=== PATIENT | male | born 1985 ===

== ENCOUNTER 2017-03-19 19:07 | Observation (INO) | payer OTHER ==
[~2017-03-19] VITALS: Ht 182.9 cm; Wt 121.4 kg
[2017-03-19] VITALS (14 sets, daily range): BP systolic 116–156; BP diastolic 55–93; PULSE 70–94; RESP 16–24; TEMP 98.8; O2SAT 93–99
[2017-03-19] MEDS ORDERED: SODIUM CHLORIDE 0.9% FLUSH 10 ML FLUSH IVF PRN (19:15)
[2017-03-19] MEDS ORDERED: HEPARIN SODIUM - IV 10,000 UNITS/10 ML VIAL IV ONE (19:30)
[2017-03-19] MEDS ORDERED: HEPARIN-D5W INJ 250 ML IV SCH (19:30)
[2017-03-19] MEDS ORDERED: NITROGLYCERIN-DEXTROSE INJ 250 ML IV ONE (19:30)
--- NOTE | 2017-03-19 19:38 | PD ---
HPI Chief Complaint: Chest Pain Time Seen by Provider: 19:15 Travel History International Travel<30 days: No Contact w/Intl Traveler<30days: No Traveled to known affect area: No History of Present Illness HPI 31-year-old obese male with history of HTN, HLD, DM here with complaint of chest pain. Approximately 30 minutes prior to arrival patient had sudden onset of severe 10 out of 10 substernal chest pain that radiated slightly around to the right back. Associated shortness of breath, diaphoresis , nausea but no vomiting. 911 was called and when fire department arrived patient was cool pale and profusely diaphoretic. Twelve-lead EKG shows ST elevation in V3 only, T-wave inversion in inferior leads. Patient was given aspirin, nitroglycerin 3, morphine 6 mg prior to arrival. This is taken his pain from 05/25 to 03/25. Patient denies any known history of cardiac disease, has never previously had provocative testing. PFSH Past Medical History High Cholesterol: Yes Diabetes: Yes Patient Takes Glucophage: Yes Hypertension: Yes Medical other: Yes (SLEEP APNEA) Influenza Vaccination: Yes Past Surgical History Neurologic Surgery: Yes (DISC SURGERY IN NECK) Social History Alcohol Use: No Tobacco Use: No Substance Use: No Allergies-Medications (Allergen,Severity, Reaction): Coded Allergies: No Known Allergies (Unverified , 03/19/17) Reported Meds & Prescriptions Reported Meds & Active Scripts Active Reported Atorvastatin (Atorvastatin Calcium) 10 Mg Tab 10 Mg PO DAILY Lisinopril 2.5 Mg Tab Unknown Dose PO DAILY Metformin (Metformin HCl) 1,000 Mg Tab 1,000 Mg PO BIDPC With meals Lantus Inj (Insulin Glargine) 1,000 Unit/10 Ml Vial 40 Units SQ HS Lantus Inj (Insulin Glargine) 1,000 Unit/10 Ml Vial 30 Units SQ AC LUNCH Lantus Inj (Insulin Glargine) 1,000 Unit/10 Ml Vial 20 Units SQ DAILY NEB Novolin R Inj (Insulin Human Regular) 1,000 Unit/10 Ml Vial 100 Units SQ BID Review of Systems Except as stated in HPI: all other systems reviewed are Neg Physical Exam Narrative GENERAL: Obese male in mild distress SKIN: Focused skin assessment warm/dry. HEAD: Normocephalic. EYES: No scleral icterus. No injection or drainage. ENT: Mucous membranes pink and moist. NECK: Supple CARDIOVASCULAR: Regular rate and rhythm. No murmur appreciated. RESPIRATORY: No accessory muscle use. Clear to auscultation. Breath sounds equal bilaterally. GASTROINTESTINAL: Abdomen soft, non-tender, nondistended. Obese MUSCULOSKELETAL: No obvious deformities. No edema. NEUROLOGICAL: Awake and alert. Motor grossly within normal limits. Normal speech. PSYCHIATRIC: Appropriate mood and affect; insight and judgment normal. Data Data Last Documented VS Vital Signs Date Time Temp Pulse Resp B/P Pulse Ox O2 Delivery O2 Flow Rate FiO2 03/19/17 20:26 88 18 143/71 Room Air 03/19/17 20:15 95 03/19/17:17 98.8 Orders Electrocardiogram (03/19/17 19:15) Ckmb (Isoenzyme) Profile (03/19/17 19:15) Complete Blood Count With Diff (03/19/17 19:15) Magnesium (Mg) (03/19/17 19:15) Prothrombin Time / Inr (Pt) (03/19/17 19:15) Act Partial Throm Time (Ptt) (03/19/17 19:15) Troponin I (03/19/17 19:15) Ecg Monitoring (03/19/17 19:15) Bilateral Bp Monitoring (03/19/17 19:15) Iv Access Insert/Monitor (03/19/17 19:15) Oximetry (03/19/17 19:15) Oxygen Administration (03/19/17 19:15) Sodium Chloride 0.9% Flush (Ns Flush) (03/19/17 19:15) Comprehensive Metabolic Panel (03/19/17 19:15) Lipase (03/19/17 19:15) Nitroglycerin-Dextrose Inj (Nitroglyceri (03/19/17 19:30) Heparin Infusion PEDRO.Q1H (03/19/17 19:26) Heparin Inj (Heparin Inj) (03/19/17 19:30) Heparin Inj (Heparin Inj) (03/20/17 01:30) Heparin Inj (Heparin Inj) (03/20/17 01:30) Heparin-D5w Inj (Heparin-D5w Inj) (03/19/17 19:30) Cbc No Diff, Includes Plts (03/22/17 06:00) Act Partial Throm Time (Ptt) (03/20/17 02:26) Occult Blood (Hemoccult) Stool (03/19/17 19:26) Chest, Single Ap (03/19/17 ) CKMB (03/19/17 19:20) CKMB% (03/19/17 19:20) Insulin Human Regular Inj (Novolin R Inj (03/19/17 20:45) Admit Order (Ed Use Only) (03/19/17 20:38) Consult Cardiology (03/19/17 ) Labs Laboratory Tests Test 03/19/17 19:20 White Blood Count 6.9 TH/MM3 Red Blood Count 5.60 MIL/MM3 Hemoglobin 14.6 GM/DL Hematocrit 44.0 % Mean Corpuscular Volume 78.6 FL Mean Corpuscular Hemoglobin 26.0 PG Mean Corpuscular Hemoglobin 33.1 % Concent Red Cell Distribution Width 13.0 % Platelet Count 206 TH/MM3 Mean Platelet Volume 8.7 FL Neutrophils (%) (Auto) 47.2 % Lymphocytes (%) (Auto) 43.0 % Monocytes (%) (Auto) 6.8 % Eosinophils (%) (Auto) 1.9 % Basophils (%) (Auto) 1.1 % Neutrophils # (Auto) 3.3 TH/MM3 Lymphocytes # (Auto) 3.0 TH/MM3 Monocytes # (Auto) 0.5 TH/MM3 Eosinophils # (Auto) 0.1 TH/MM3 Basophils # (Auto) 0.1 TH/MM3 CBC Comment AUTO DIFF Differential Total Cells 100 Counted Neutrophils % (Manual) 53 % Lymphocytes % 36 % Monocytes % 9 % Eosinophils % 1 % Basophils % 1 % Neutrophils # (Manual) 3.7 TH/MM3 Differential Comment FINAL DIFF MANUAL Platelet Estimate NORMAL Platelet Morphology Comment NORMAL Red Cell Morphology Comment NORMAL Prothrombin Time 10.8 SEC Prothromb Time International 1.0 RATIO Ratio Activated Partial 24.5 SEC Thromboplast Time Sodium Level 131 MEQ/L Potassium Level 3.8 MEQ/L Chloride Level 97 MEQ/L Carbon Dioxide Level 20.5 MEQ/L Anion Gap 14 MEQ/L Blood Urea Nitrogen 9 MG/DL Creatinine 1.08 MG/DL Estimat Glomerular Filtration 79 ML/MIN Rate Random Glucose 414 MG/DL Calcium Level 9.5 MG/DL Magnesium Level 1.9 MG/DL Total Bilirubin 0.4 MG/DL Aspartate Amino Transf 49 U/L (AST/SGOT) Alanine Aminotransferase 86 U/L (ALT/SGPT) Alkaline Phosphatase 94 U/L Total Creatine Kinase 295 U/L Troponin I LESS THAN 0.02 NG/ML Total Protein 8.5 GM/DL Albumin 4.0 GM/DL Lipase 76 U/L MDM Medical Decision Making Medical Screen Exam Complete: Yes Emergency Medical Condition: Yes Medical Record Reviewed: Yes Differential Diagnosis 31-year-old obese male with history of HTN, HLD, DM here with complaint of severe sudden onset chest pain, shortness of breath with lightheadedness and profuse diaphoresis. Differential includes ACS, atypical chest pain, PE, dissection, GERD, gastritis, pancreatitis or other hepatobiliary etiology. Narrative Course Patient met by myself upon emergency department arrival, placed on monitor, IV established and blood obtained. Twelve-lead EKG shows sinus rhythm with T-wave inversions in inferior leads 3, aVF. There is no evidence of ST elevation. A right sided EKG was obtained. There is no evidence of ST elevation in V4R. The patient still complaining of 8/10 pain. Was placed on heparin drip, nitroglycerin drip. A twelve-lead EKG was repeated approximately 6 minutes after the first without any interval changing. The T-wave inversions in the inferior leads persist. Posterior EKG was obtained without any ST elevation or ST depression. Laboratory workup notable for hyperglycemia, given 10 units of insulin. Initial troponin negative. On 70-80 g nitroglycerin drip patient is chest pain-free. Cardiology was consulted, will keep him nothing by mouth after midnight for potential cardiac catheter in the morning. Patient will be admitted to medicine. Critical Care Narrative Aggregate critical care time was 50 minutes. Time to perform other separately billable procedures was not included in the critical care time. My time did not include minutes spent treating any other patients simultaneously or on activities that did not directly contribute to the patient's treatment. The services I provided to this patient were to treat and/or prevent clinically significant deterioration that could result in: Cardiopulmonary decompensation, , disability I provided critical care services requiring my management, as noted below: Chart data review, documentation time, medication orders and management, vital sign assessments/reviewing monitor data, ordering and reviewing lab tests, ordering and interpreting/reviewing x-rays and diagnostic studies, care of the patient and discussion of the patient with the admitting physicians. Diagnosis Primary Impression: Non-ST elevation TN (NSTEMI) Additional Impressions: Chest pain Qualified Code: R07.2 - Precordial pain Hyperglycemia Diabetes Admitting Information Admitting Physician Requests: Admit Katie Hernandez MD Mar 19, 2017 19:38
[2017-03-19 19:40] LABS: AUTOMATED NEUTROPHIL # 3.3 TH/MM3 (1.8-7.7); BASOPHIL # 0.1 TH/MM3 (0-0.2); BASOPHIL % 1.1 % (0.0-2.0); EOSINOPHIL # 0.1 TH/MM3 (0-0.4); EOSINOPHIL % 1.9 % (0.0-4.0); MEAN CELL VOLUME 78.6 FL (80.0-100.0); MEAN CORPUSCULAR HGB CONC 33.1 % (32.0-36.0); MONO % 6.8 % (0.0-8.0); NEUT % 47.2 % (16.0-70.0); PLATELET COUNT 206 TH/MM3 (150-450); WHITE BLOOD COUNT 6.9 TH/MM3 (4.0-11.0)
[2017-03-19 19:44] LABS: HEMO FLAGS AUTO DIFF
[2017-03-19] MEDS ORDERED: NOVORP2 SQ (19:48)
[2017-03-19] MEDS ORDERED: LANTUS2P SQ ×3 (19:48)
[2017-03-19] MEDS ORDERED: METF1000 PO (19:48)
[2017-03-19] MEDS ORDERED: LISI2.5T3 PO (19:48)
[2017-03-19] MEDS ORDERED: ATOR10TA15 PO (19:48)
[2017-03-19 19:49] LABS: APTT (PATIENT) 24.5 SEC (24.3-30.1); PROTHROMBIN TIME - PATIENT 10.8 SEC (9.8-11.6)
[2017-03-19 20:23] LABS: ALKALINE PHOSPHATASE 94 U/L (45-117); ALT (GPT) 86 U/L (12-78); ANION GAP 14 MEQ/L (5-15); AST (GOT) 49 U/L (15-37); BICARBONATE 20.5 MEQ/L (21.0-32.0); BLOOD UREA NITROGEN 9 MG/DL (7-18); CHLORIDE 97 MEQ/L (98-107); CREATINE KINASE 295 U/L (39-308); GLOMERULAR FILTRATION RATE 79 ML/MIN (>89); MAGNESIUM 1.9 MG/DL (1.5-2.5); SODIUM (NA) 131 MEQ/L (136-145); TOTAL BILIRUBIN ADULT 0.4 MG/DL (0.2-1.0)
[2017-03-19 20:32] LABS: POTASSIUM 3.8 MEQ/L (3.5-5.1)
[2017-03-19 20:37] LABS: BASOPHILS 1 % (0-2); EOSINOPHILS 1 % (0-4); NEUTROPHIL # MANUAL DIFF 3.7 TH/MM3 (1.8-7.7); POLYS (SEG NEUTROPHILS) 53 % (16-70); WBC DIFF SAMPLE 100
[2017-03-19 20:38] LABS: PLATELET ESTIMATE SMEAR NORMAL (NORMAL); PLATELET MORPHOLOGY NORMAL (NORMAL); SCAN/DIFF FINAL DIFF MANUAL
--- NOTE | 2017-03-19 20:38 | RADRPT ---
EXAM DATE/TIME: 03/19/2017 20:06 [facility] COMPARISON: No previous studies available for comparison. INDICATIONS : Chest pain. MEDICAL HISTORY : None. SURGICAL HISTORY : None. ENCOUNTER: Initial ACUITY: 1 day PAIN SCORE: 5/10 LOCATION: Bilateral chest FINDINGS: A single view of the chest demonstrates the lungs to be symmetrically aerated without evidence of mas s, infiltrate or effusion. The cardiomediastinal contours are unremarkable. Osseous structures are intact. CONCLUSION: The lungs are clear. Abhishek Hanna MD on March 19, 2017 at 20:36 Board Certified Radiologist. This report was verified electronically.
[2017-03-19] MEDS ORDERED: ACETAMINOPHEN 500 MG CPLT PO ONE (20:45)
[2017-03-19] MEDS ORDERED: INSULIN HUMAN REGULAR 1,000 UNITS/10 ML VIAL SQ ONE (20:45)
[2017-03-19 20:49] LABS: CKMB 0.6 NG/ML (0.5-3.6)
--- NOTE | 2017-03-19 20:53 | HHI.HP ---
[facility] Service [facility] Primary Care Physician [facility] Admission Diagnosis NSTEMI Diagnoses: (1) ACS (acute coronary syndrome) Diagnosis: Principal (2) Migraine Diagnosis: Principal (3) HTN (hypertension) Diagnosis: Principal (4) DM (diabetes mellitus) Diagnosis: Principal (5) Sleep apnea Diagnosis: Principal Travel History International Travel<30 Days: No Contact w/Intl Traveler <30 Da: No Traveled to Known Affected Are: No History of Present Illness This is a 31-year-old male with a PMH of HTN, Migraine, Sleep Apnea and DM who presents the ear with complaints of chest pain starting approximately 30min prior to arrival. Reports pain started acutely w/ radiation to RUQ and back. Per , pt had c/o Migraine and took Sumatriptan 50mg x1 last evening. Today , w/ complaints of acute substernal chest pain. No fever, chills, cough or SOB. Reports h/o similar symptoms approx 1yr ago, seen at [facility] and underwent Stress Test which was reportedly negative. On arrival, BP 156/93, HR 89, O2 sat 98% on RA, Afebrile. CBC essentially unremarkable. GFR 79. BS 414. Troponin negative. INR normal. CXR with no acute findings. EKG with T- wave inversions, no previous EKG for comparison. While in ER, pt w/ ongoing complaints of pain, s/p Heparin/Nitro gtt. Dr. Amor consulted by ER physician, will see in am for possible cath. Review of Systems Except as stated in HPI: all other systems reviewed are Neg ROS: 14 point review of systems otherwise negative. Past Family Social History Past Medical History PMH: HTN, Migraine, Sleep Apnea and DM Past Surgical History PAST SURGICAL HISTORY: Neck Surgery Allergies: Coded Allergies: No Known Allergies (Unverified , 03/19/17) Family History PAST FAMILY HISTORY: Reviewed. No h/o DM or CAD Social History PAST SOCIAL HISTORY: Negative for alcohol, tobacco or drugs. Physical Exam Vital Signs Vital Signs Date Time Temp Pulse Resp B/P Pulse Ox O2 Delivery O2 Flow Rate FiO2 03/19/17 20:40 89 18 156/93 98 Room Air 03/19/17 20:26 88 18 143/71 Room Air 03/19/17 20:15 90 18 148/72 95 Room Air 03/19/17 20:10 82 18 130/68 96 Room Air 03/19/17 20:04 78 20 132/68 95 Room Air 03/19/17 20:00 76 22 131/74 94 Room Air 03/19/17 19:55 71 20 135/70 93 Room Air 03/19/17 19:50 81 20 133/71 97 Room Air 03/19/17 19:45 77 22 130/73 97 Room Air 03/19/17 19:27 124/73 03/19/17 19:17 98.8 80 24 133/85 99 Physical Exam PE: GENERAL: Very pleasant young black male in no acute distress. and family at bedside. HEENT: PERRLA, EOMI. No scleral icterus or conjunctival pallor. No lid lag or facial droop. CARDIOVASCULAR: Regular rate and rhythm. No obvious murmurs to auscultation. No chest tenderness to palpation. RESPIRATORY: No obvious rhonchi or wheezing. Clear to auscultation. Breath sounds equal bilaterally. GASTROINTESTINAL: Abdomen soft, non-tender, nondistended. BS normal. MUSCULOSKELETAL: Extremities without clubbing, cyanosis, or edema. No obvious deformities. NEUROLOGICAL: Awake, alert and oriented x4. No focal neurologic deficits. Moving both upper and lower extremities spontaneously. Laboratory Laboratory Tests Test 03/19/17 19:20 White Blood Count 6.9 Red Blood Count 5.60 Hemoglobin 14.6 Hematocrit 44.0 Mean Corpuscular Volume 78.6 Mean Corpuscular Hemoglobin 26.0 Mean Corpuscular Hemoglobin 33.1 Concent Red Cell Distribution Width 13.0 Platelet Count 206 Mean Platelet Volume 8.7 Neutrophils (%) (Auto) 47.2 Lymphocytes (%) (Auto) 43.0 Monocytes (%) (Auto) 6.8 Eosinophils (%) (Auto) 1.9 Basophils (%) (Auto) 1.1 Neutrophils # (Auto) 3.3 Lymphocytes # (Auto) 3.0 Monocytes # (Auto) 0.5 Eosinophils # (Auto) 0.1 Basophils # (Auto) 0.1 CBC Comment AUTO DIFF Differential Total Cells 100 Counted Neutrophils % (Manual) 53 Lymphocytes % 36 Monocytes % 9 Eosinophils % 1 Basophils % 1 Neutrophils # (Manual) 3.7 Differential Comment FINAL DIFF MANUAL Platelet Estimate NORMAL Platelet Morphology Comment NORMAL Red Cell Morphology Comment NORMAL Prothrombin Time 10.8 Prothromb Time International 1.0 Ratio Activated Partial 24.5 Thromboplast Time Sodium Level 131 Potassium Level 3.8 Chloride Level 97 Carbon Dioxide Level 20.5 Anion Gap 14 Blood Urea Nitrogen 9 Creatinine 1.08 Estimat Glomerular Filtration 79 Rate Random Glucose 414 Calcium Level 9.5 Magnesium Level 1.9 Total Bilirubin 0.4 Aspartate Amino Transf 49 (AST/SGOT) Alanine Aminotransferase 86 (ALT/SGPT) Alkaline Phosphatase 94 Total Creatine Kinase 295 Creatine Kinase MB 0.6 Troponin I LESS THAN 0.02 Total Protein 8.5 Albumin 4.0 Lipase 76 Result Diagram: 03/19/17191903/19/171919 Assessment and Plan Problem List: (1) ACS (acute coronary syndrome) ICD Code: I24.9 Status: Acute (2) Migraine ICD Code: G43.909 Status: Acute (3) HTN (hypertension) ICD Code: I10 Status: Acute (4) Sleep apnea ICD Code: G47.30 Status: Acute (5) DM (diabetes mellitus) ICD Code: E11.9 Status: Acute Assessment and Plan A/P: 1. ACS: c/o acute onset substernal chest pain w/ abnormal EKG, presentation concerning for ACS. Initial trop negative. Currently on Heparin/Nitro gtt, chest pain free. Admit to [facility], telemetry, check serial cardiac enzymes, Lipid Profile, Hgb A1c, TSH, start ASA, Statin, B-krista. Dr. Amor consulted by ER physician, plan for possible cath in am. Similar symptoms approx 1yr ago, s/ p Stress Test at reportedly negative. 2. Migraine: h/o Migraine w/ Acute Headache last evening, s/p Sumatriptan, possible vasoconstriction triggering chest pain. Hold Sumatriptan. 3. DM: Sliding scale w/ Accu-Cheks. Hold Metformin for possible cardiac intervention. Check Hgb A1c. 4. HTN: BP 160's on arrival, currently 116/60, HR 70. Will monitor. Continue with beta krista as above. 5. Sleep Apnea: On CPAP at night, however noncompliant. Will resume CPAP w/ home settings. 6. DVT Prophylaxis: Heparin gtt 7. Social work for d/c planning as needed. 8. Case discussed w/ ER physician at length. Physician Certification 2 Midnight Certification Type: Admission for Inpatient Services Order for Inpatient Services The services are ordered in accordance with Medicare regulations or non- Medicare payer requirements, as applicable. In the case of services not specified as inpatient-only, they are appropriately provided as inpatient services in accordance with the 2-midnight benchmark. Estimated LOS (days): 2 days is the estimated time the patient will need to remain in the hospital, assuming treatment plan goals are met and no additional complications. Post-Hospital Plan: Not yet determined Felicia Ingram MD Mar 19, 2017 20:53
[2017-03-19] MEDS ORDERED: MORPHINE SULFATE 4 MG/ML INJ IV PRN (21:00)
[2017-03-19] MEDS ORDERED: ONDANSETRON HCL 4 MG/2 ML VIAL IVP PRN (21:00)
[2017-03-19] MEDS ORDERED: LACTULOSE SYRUP 20 GM/30 ML CUP PO PRN (21:00)
[2017-03-19] MEDS ORDERED: BISACODYL 10 MG SUPP RECTAL PRN (21:00)
[2017-03-19] MEDS ORDERED: MAGNESIUM HYDROXIDE SUSP 30 ML CUP PO PRN (21:00)
[2017-03-19] MEDS: SODIUM CHLORIDE 0.9% FLUSH 10 ML FLUSH IV FLUSH SCH (21:00)
[2017-03-19] MEDS ORDERED: SODIUM CHLORIDE 0.9% FLUSH 10 ML FLUSH IV FLUSH PRN (21:00)
[2017-03-19] MEDS ORDERED: ACETAMINOPHEN/HYDROcodone 325 MG/5 MG TAB PO PRN (21:00)
[2017-03-19] MEDS ORDERED: SENNOSIDES 8.6 MG TAB PO PRN (21:00)
[2017-03-19] MEDS ORDERED: DEXTROSE 50% IN WATER 50 ML VIAL(D50) IV PRN (21:00)
[2017-03-19] MEDS ORDERED: GLUCAGON 1 MG/ML VIAL OTHER PRN (21:00)
[2017-03-19] MEDS ORDERED: PILL SPLITTER OTHER PRN (21:30)
[2017-03-19] MEDS: SODIUM CHLOR 0.9% 1000 ML INJ 1,000 ML IV SCH (21:55)
[2017-03-19] MEDS: METOPROLOL TARTRATE 25 MG TAB PO SCH (21:55)
[2017-03-19] MEDS: DOCUSATE SODIUM 50 MG/SENNA 8.6 MG TAB PO SCH (21:55)
[2017-03-19] MEDS: INSULIN ASPART SUPPLEMENTAL SCALE SQ SCH (22:50)
[2017-03-20] VITALS (35 sets, daily range): BP systolic 118–163; BP diastolic 56–96; PULSE 52–86; RESP 18–20; TEMP 97.5–98.6; O2SAT 96–100
[2017-03-20] MEDS ORDERED: HEPARIN SODIUM - IV 10,000 UNITS/10 ML VIAL IV PRN ×2 (01:30)
[2017-03-20 01:38] LABS: APTT (PATIENT) 28.2 SEC (24.3-30.1)
[2017-03-20] MEDS ORDERED: NITROGLYCERIN-DEXTROSE INJ 250 ML IV SCH (02:00)
[2017-03-20] MEDS: INSULIN ASPART SUPPLEMENTAL SCALE SQ SCH ×4 (06:09→21:30)
[2017-03-20 07:56] LABS: BASOPHIL % 0.5 % (0.0-2.0); EOSINOPHIL # 0.2 TH/MM3 (0-0.4); EOSINOPHIL % 3.2 % (0.0-4.0); HEMATOCRIT 41.9 % (39.0-51.0); HEMO FLAGS DIFF FINAL; LYMPH % 34.2 % (9.0-44.0); LYMPHOCYTE # 2.5 TH/MM3 (1.0-4.8); MEAN CELL VOLUME 78.9 FL (80.0-100.0); MEAN CORPUSCULAR HEMOGLOBIN 26.4 PG (27.0-34.0); MEAN CORPUSCULAR HGB CONC 33.4 % (32.0-36.0); MONO % 7.6 % (0.0-8.0); NEUT % 54.5 % (16.0-70.0); PLATELET COUNT 197 TH/MM3 (150-450); RED BLOOD COUNT 5.31 MIL/MM3 (4.50-5.90); RED CELL DISTRIBUTION WIDTH 13.7 % (11.6-17.2); WHITE BLOOD COUNT 7.3 TH/MM3 (4.0-11.0)
[2017-03-20 08:30] LABS: ALKALINE PHOSPHATASE 63 U/L (45-117); ALT (GPT) 88 U/L (12-78); ANION GAP 11 MEQ/L (5-15); AST (GOT) 52 U/L (15-37); BICARBONATE 27.3 MEQ/L (21.0-32.0); BLOOD UREA NITROGEN 11 MG/DL (7-18); CHLORIDE 101 MEQ/L (98-107); GLOMERULAR FILTRATION RATE 102 ML/MIN (>89); HDL CHOLESTEROL 25.6 MG/DL (40.0-60.0); LDL CHOLESTEROL 111 MG/DL (0-99); POTASSIUM 3.6 MEQ/L (3.5-5.1); SODIUM (NA) 139 MEQ/L (136-145); TOTAL BILIRUBIN ADULT 0.4 MG/DL (0.2-1.0)
[2017-03-20] MEDS ORDERED: NOVORP2 SQ ×2 (08:36→08:40)
[2017-03-20] MEDS ORDERED: LANTUS2P SQ (08:36)
[2017-03-20] MEDS ORDERED: INSUINJ3 SQ (08:38)
[2017-03-20] MEDS: DOCUSATE SODIUM 50 MG/SENNA 8.6 MG TAB PO SCH ×2 (09:00→21:20)
[2017-03-20] MEDS: SODIUM CHLORIDE 0.9% FLUSH 10 ML FLUSH IV FLUSH SCH ×2 (09:00→21:00)
[2017-03-20] MEDS ORDERED: ATORVASTATIN 10 MG TAB PO SCH (09:00)
[2017-03-20] MEDS: SODIUM CHLOR 0.9% 1000 ML INJ 1,000 ML IV SCH ×3 (09:02→21:21)
[2017-03-20 09:19] LABS: APTT (PATIENT) 29.1 SEC (24.3-30.1)
[2017-03-20] MEDS: METOPROLOL TARTRATE 25 MG TAB PO SCH ×2 (09:19→21:20)
[2017-03-20] MEDS: ACETAMINOPHEN 325 MG TAB PO PRN (09:20)
[2017-03-20] MEDS: INSULIN DETEMIR 100 UNITS/ML VIAL SQ SCH ×2 (09:29→21:00)
[2017-03-20] MEDS ORDERED: HEPARIN-NS/PF INJ 500 ML ONE (10:57)
[2017-03-20] MEDS ORDERED: IOHEXOL 350 MG/ML 50 ML BTL (for Cath Lab) OTHER ONE (11:12)
[2017-03-20] MEDS ORDERED: VERAPAMIL HCL 5 MG/2 ML VIAL ONE (11:21)
[2017-03-20] MEDS ORDERED: MIDAZOLAM HCL 2 MG/2 ML VIAL ONE (11:31)
--- NOTE | 2017-03-20 12:22 | CATHPROC ---
[email or web address] HIS Report Study Information Study Number Admission Scheduled Start Study Start [id number] Mar 19 2017 8:40PM 03/20/2017 Mar 20 2017 11:12AM [place] [facility] Cardiac Catheterization Admit Source Facility Department Emergency department [facility] - Survey Manager Physician and Clinical Staff Initial MD Perez, Fernando Design Assistant Jaime ManningRN Additional Jack Chavez Design Assistantelaina Bonilla, Macy Recorder Sara Rene,(R) (BS) Scrub Von Feliciano RCIS(BS) Procedures Performed Procedure Location (Site) Vessel Name Coronary Angiograms LCA Left Coronary Coronary Angiograms RCA Right Coronary L Heart Cath Wire insertion Radial (right) Radial Art. Equipment Time Assembly Inspector Helper Description Size Mfg Part Number Used/Scraped TRANSDUCER, TRUWAVE [id number] 11:36 TAYLOR JURADO * Used W/STOCKCOCK *[id number] [id number] *[id number] 534-520T *[id number] [id number] *[id number] [id number] *[id number] 11:36 [employer] PACK, CCL CUSTOM * Used *[id number] 11:36 [employer] SUPPORT, ARTERIAL ADULT [id number] Used BAND, RADIAL COMPRESSION TR [id number] 12:11 [employer] MEDICAL 29CM Used LARGE 29 *[id number] 11:36 [employer] WIRE, EXCHANGE 260CM 3MMJ 260CM Used *[id number] 11:36 NAMIC MANIFOLD, 4 PORT * Used *[id number] 11:36 [employer] OMNIPAQUE, 350 MG, 150ML 150ML [id number] Used [id number] 11:36 [facility] BLANKET,WARM AIR CCL * Used *[id number] SHEATH, FR6 TRANSRADIAL RM*[id number] 11:36 [facility] FR 6 Used SLENDER 10CM *[id number] History: Current Medications Medication Dosage/Unit Route Frequency Last Date/Time Taken Beta Bran Statins (any) History: Allergies Allergy Reaction No Known Allergies History: Risk Factors Family History of Hypertension Dyslipidemia Previous ND Previous Heart Failure Premature CAD Yes Yes No No No Prior Valve Prior PCI Prior CABG Surgery No No No Cerebrovascular Peripheral Artery Chronic Lung On Dialysis Diabetes Diabetes Therapy Disease Disease Disease No No No No Yes Insulin History: Symptoms/Diagnosis Selection Items Chest pain History: Stress Tests Stress or Imaging Studies Performed No History: Other Current Smoker No Labs Hgb (g/dl) Hct (%) WBC (l/cumm) Platelets (thousands) 11.60-17.00 35.00-51.00 4.00-11.00 150.00-450.00 14.0 41.9 7.3 197 Glucose (mg/dl) BUN (mg/dl) Creatinine (mg/dl) BUN:Creatinine (1:x) 74.00-106.00 7.00-18.00 0.50-1.30 10.00-20.00 258 11 0.8 13.8 Na (meq/l) K (meq/l) 136.00-145.00 3.50-5.10 139 3.6 INR (PTT:PT) 0.90-1.10 1 Troponin I (ng/ml) CPK (u/l) CPK-MB (ng/ML) 0.02-0.05 26.00-308.00 0.50-3.60 0.02 295 0.6 Medication Medication Total Dose (Bolus/Oral) Medication Total Dosage/Unit 1% XYLOCAINE 1 mL FENTANYL 50 mcg RADIAL COCKTAIL 1 mL (Bolus) VERSED 1 mg Medications (Bolus/Oral) Medication Time Given Dosage/Unit Administered By Reason VERSED 03/20/2017 11:32:41 AM 1 mg Jaime Manning 1 mg VERSED given in lab by Jaime Manning RN in Left Antecubital via Peripheral IV. 1% XYLOCAINE 03/20/2017 11:32:59 AM 1 mL Jaime Manning 1 mL 1% XYLOCAINE given in lab by Jaime Manning RN in Right Radial via Subcutaneous. FENTANYL 03/20/2017 11:33:52 AM 25 mcg Jaime Manning 25 mcg FENTANYL given in lab by Jaime Manning RN in Left Antecubital via Peripheral IV. FENTANYL 03/20/2017 11:35:58 AM 25 mcg Jaime Manning 25 mcg FENTANYL given in lab by Jaime Manning RN in Left Antecubital via Peripheral IV. Ntg 200mcg Verapamil 2.5mg Heparin RADIAL COCKTAIL 03/20/2017 11:38:15 AM 1 mL (Bolus) Jack Amor 2000U 1 mL (Bolus) RADIAL COCKTAIL given in lab by Jack Amor in Right Radial via Radial. Using [Viviana ution Name]. Reason: Ntg 200mcg Verapamil 2.5mg Heparin 5000U. Medication (Drip) Medication Time Given Dosage/Unit Concentration/Unit Diluent (ml) Solutio n HEPARIN DRIP STOPPED 03/20/2017 11:10:18 AM 0 units/hr 0 0 units/hr HEPARIN DRIP STOPPED given in lab by Jaime Manning RN. Pump/Drip Flow = 0 ml/hr using [So lution Name]. IV Solutions 03/20/2017 11:23:07 AM 0 mL (IV) 500 NaCl .9 Patient arrived on IV Solutions in Left Antecubital via Peripheral IV. Pump/Drip Flow = 100 ml/hr usi ng NaCl .9. NITROGLYCERIN DRIP 03/20/2017 11:23:32 AM 40 mcg/min 50 mg 250 D5W Patient arrived on 40 mcg/min NITROGLYCERIN DRIP in Left Antecubital via Peripheral IV. Pump/Drip Cruz w = 12 ml/hr using D5W with a concentration of 50 mg in 250 ml. NITROGLYCERIN DRIP 03/20/2017 11:53:26 AM 20 mcg/min 50 mg 250 D5W 20 mcg/min NITROGLYCERIN DRIP given in lab by Jaime Manning RN in Left Antecubital via Peripheral IV . Pump/Drip Flow = 6 ml/hr using D5W with a concentration of 50 mg in 250 ml. NITROGLYCERN DRIP 03/20/2017 12:06:01 PM 0 units/hr 0 STOPPED 0 units/hr NITROGLYCERN DRIP STOPPED given in lab by Jaime Manning RN. Pump/Drip Flow = 0 ml/hr usin g [Solution Name]. Initial Case Assessment Cardiovascular HR Rhythm NIBP Chest Pain 65 reg 140/86 0 Edema Present Skin color Skin None Normal Warm Dry Circulatory - Right Pulses Dorsalis Pedis Femoral Radial 3 3 3 Scale (0,1,2,3,4,d) Scale (0,1,2,3,4,d) Circulatory - Lower Extremities Color Lower Right Color Lower Left Normal Normal Neurological State Oriented to time-place- Alert Moves all extremities person Respiration - General Respiration Rate SpO2 (%) (B/min) 16 100 Chronological Log Time Study Chronological Log 11:10:18 0 units/hr HEPARIN DRIP STOPPED given in lab by Jaime Manning RN. Pump/Drip Flow = 0 ml/hr using [Solution Name]. 11:12:27 Patient arrived via Bed. 11:12:28 Patient Name, D.O.B, / Armband Verified By R.N. 11:12:28 Consent signed by the physician and the patient and verified by the Survey Manager staff. 11:12:29 Pre-op and post- op instructions given; patient acknowledges understanding of instructions. 11:19:20 MD arrived. 11:20:44 Verbal Stimulation=2 Physical Stimulation=2 Airway=2 Respiration=2 TOTAL=8. (0=absent, 1=li mited, 2=present) Vitals capture started with the following parameters, Patient=Adult, Interval=5 min, Initial Pr mnhrqy=559 mmHg, 11:20:46 Deflation Rate=5 mmHg, Cuff placed on Right Arm 11:20:49 Presedation assessment performed by Survey Manager RN. 11:21:56 HR=69 bpm, ELIV=828/78 mmhg, Resp=23 B/min, Pain=0, Viji=10, Sepulveda=2 11:22:42 Allens test performed on the right radial and ulnar artery. 11:22:50 Patient has been NPO for More than 6Hrs. 11:22:58 Skin Breakdown none per pt 11:22:59 Patient Warmer Placed on the Table. 11:23:05 Joseph Prominences Protected 11:23:06 A # 18 IV was noted in the Antecubital (left). Grade = 0 11:23:07 Patient arrived on IV Solutions in Left Antecubital via Peripheral IV. Pump/Drip Flow = 100 ml/hr using NaCl .9. Patient arrived on 40 mcg/min NITROGLYCERIN DRIP in Left Antecubital via Peripheral IV. Pump/Dr ip Flow = 12 ml/hr 11:23:32 using D5W with a concentration of 50 mg in 250 ml. 11:23:38 History and physical on the chart or being dictated. Assessment: Initial Case, HR=65 BPM, Rhythm=reg, FHWP=320/86 mmhg, Chest Pain=0, Edema=None, Co jose carlos=Normal, Skin = Warm, Dry Right Pulses: Derek Ped=3, Femoral=3, Radial=3 11:23:43 Lower Right Extremities: Color=Normal Lower Left Extremities: Color=Normal Neurological: State=Alert, Ox3, HUGHES Respiration: Resp=16 B/min, CkJ6=410 % 11:23:46 A # 18 IV was noted in the Antecubital (right). Grade = 0 11:24:07 Right groin and right radial prepped with 2% chlorhexidine, and with a 3 min. waiting time. 11:26:24 HR=59 bpm, LMCD=468/86 mmhg, UiS7=941.0 %, Resp=15 B/min, Pain=0, Viji=10, Sepulveda=2 11:29:04 Reference ECG taken Time Out. Correct patient, correct procedure,correct physician, power injector loaded with cont rast with surgical team 11:31:19 present. Time Out Concurred by , individual staff in procedure 11:31:25 HR=74 bpm, HVPX=811/77 mmhg, JsE3=181.0 %, Resp=23 B/min, Pain=0, Viji=10, Sepulveda=2 11:31:37 Case Start 11:32:41 1 mg VERSED given in lab by Jaime Manning RN in Left Antecubital via Peripheral IV. 11:32:59 1 mL 1% XYLOCAINE given in lab by Jaime Manning RN in Right Radial via Subcutaneous. 11:33:52 25 mcg FENTANYL given in lab by Jaime Manning RN in Left Antecubital via Peripheral IV. 11:35:39 Access site was right Radial Artery. 11:35:58 25 mcg FENTANYL given in lab by Jaime Manning RN in Left Antecubital via Peripheral IV. 11:36:29 MYDG=930/76 mmhg, TsC8=042.0 %, Pain=0, Viji=10, Sepulveda=2 A SHEATH, FR6 TRANSRADIAL SLENDER 10CM FR 6 was advanced into the Radial (right) using the Perc utaneous 11:38:00 technique. 1 mL (Bolus) RADIAL COCKTAIL given in lab by Jack Amor in Right Radial via Radial. Jahaira dyer [Solution Name]. 11:38:15 Reason: Ntg 200mcg Verapamil 2.5mg Heparin 5000U. A JR 4.0 INFINITI CATHETER FR 5 was advanced over a wire. OMNIPAQUE, 350 MG, 150ML 150ML was us ed for 11:38:41 injections. Recorded Pressure: LV, HR=70, Condition=Condition 1 11:40:52 (Left Ventricle) LV 120/13/20 Recorded Pressure: LV, Ao, HR=76, Condition=Condition 1 11:41:10 (Left Ventricle) LV 123/13/19, (Aorta) Ao 127/87/104 11:41:28 HR=67 bpm, LDUZ=502/71 mmhg, Resp=20 B/min, Pain=0, Viji=10, Sepulvead=2 11:41:39 The RCA was injected and visualized at various angles. OMNIPAQUE, 350 MG, 150ML 150ML used . Recorded Pressure: Ao, HR=69, Condition=Condition 1 11:42:04 (Aorta) Ao 115/83/98 After removing the current catheter a JL 3.5 INFINITI CATHETER FR 5 was advanced over a WIRE, E XCHANGE 260CM 11:42:48 3MMJ 260CM. After removing the current catheter a JL 4.0 INFINITI CATHETER FR 5 was advanced over a WIRE, E XCHANGE 260CM 11:46:22 3MMJ 260CM. 11:46:27 HR=61 bpm, NXDF=164/70 mmhg, SpO2=99.0 %, Resp=18 B/min, Pain=0, Viji=10, Sepulveda=2 11:51:28 HR=62 bpm, PPBQ=298/72 mmhg, SpO2=98.0 %, Resp=8 B/min, Pain=0, Viji=10, Sepulveda=2 After removing the current catheter a JL 4.5 INFINITI CATHETER FR 5 was advanced over a WIRE, E XCHANGE 260CM 11:53:08 3MMJ 260CM. 20 mcg/min NITROGLYCERIN DRIP given in lab by Jaime Manning, RN in Left Antecubital via Periphe ral IV. Pump/Drip 11:53:26 Flow = 6 ml/hr using D5W with a concentration of 50 mg in 250 ml. 11:56:29 HR=60 bpm, RYCL=840/71 mmhg, RbT0=171.0 %, Resp=27 B/min, Pain=0, Viji=10, Sepulveda=2 12:01:24 HR=64 bpm, JKZQ=840/75 mmhg, EbX6=748.0 %, Resp=21 B/min, Pain=0, Viji=10, Sepulveda=2 12:02:26 The LCA was injected and visualized at various angles. OMNIPAQUE, 350 MG, 150ML 150ML use d. 0 units/hr NITROGLYCERN DRIP STOPPED given in lab by Jaime Manning RN. Pump/Drip Flow = 0 ml/ hr using [Solution 12:06:01 Name]. 12:06:29 HR=64 bpm, ZDCU=039/70 mmhg, AqA9=832.0 %, Resp=22 B/min, Pain=0, Viji=10, Sepulveda=2 12:06:57 A WIRE, EXCHANGE 260CM 3MMJ 260CM was inserted via Radial (right). 12:07:12 Catheter was removed 12:07:13 Wire removed Radial Compression Device Used. 13 mLs of air placed in BAND, RADIAL COMPRESSION TR LARGE 29 2 9CM. Affected 12:10:29 hand 97 % O2 saturation. 12:11:07 Case End 12:11:30 HR=64 bpm, OPAR=019/72 mmhg, InC9=661.0 %, Resp=21 B/min, Pain=0, Viji=10, Sepulveda=2 12:11:35 Catheter(s) removed without difficulty 12:11:47 No case complications noted. 12:11:49 Cine recording checked. 12:11:51 Bedside Report will be given. 12:11:54 Contrast Scanned 12:11:55 A Left Heart Cath was performed. 12:13:17 [facility] called. Spoke to Leigh. 12:17:52 Patient moved to [facility] End Study - Contrast Media Used In Study Contrast Total Opened (mL) Total Used (mL) Total Wasted (mL) Omnipaque 50 50 0 End Study - Maximum Contrast Load Max Contrast Load (mL) 756.3 End Study - Radiation Exposure Fluoro Time (minutes) 12.7 End Study - Patient Disposition Complications Transferred To Interventional Outcome No Telemetry Bed No attempt made
[2017-03-20] MEDS ORDERED: MISC INFORMATION XX ONE (12:30)
--- NOTE | 2017-03-20 13:13 | EKG ---
Date Performed: 03/19/2017 Time Performed: 19:14:09 PTAGE: 31 years EKG: Sinus rhythm MARKED RIGHT AXIS DEVIATION PROBABLE INFERIOR MYOCARDIAL INFARCTION ABNORMAL ECG NO PREVIOUS TRACING DOCTOR: Reji Parks Interpretating Date/Time 03/20/2017 13:10:38
--- NOTE | 2017-03-20 14:09 | MB ---
cc: JACK GILMAN DO DATE OF CONSULTATION: March 20, 2017 REASON FOR CONSULTATION Chest pain. HISTORY OF PRESENT ILLNESS: Earnest Landaverde is a pleasant 31-year-old male who originally presented to [facility] emergency room on March 19, 2017 due to chest pain. He states that he was going to work and clocked in and then started getting chest pain. Chest pain was in the center of his chest and pressure-like in nature. It did appear radiate somewhat into his shoulders. He felt like the chest pain was so excruciating that he was diaphoretic with it. He was brought to the emergency room and an electrocardiogram was done showing no significant ST elevations. He was started on a heparin drip, heparin drip and nitro glycerin drip which was increased to 80 mics / minute, to get him chest pain-free. In seeing him he is currently on 16 mics per minute of nitroglycerin and he is currently chest pain free without shortness of breath. Of note, he had a similar episode and May/June 2016 where he had chest pain, although was not as bad and he went to [facility] and underwent a stress test which was reportedly negative. PAST MEDICAL HISTORY 1. Hypertension 2. Migraines 3. Sleep apnea (previously on C-PAP although he is waiting for them to recalibrate is machine so he has not been on recently) 4. Diabetes mellitus. PAST SURGICAL HISTORY Neck surgery. ALLERGIES NO KNOWN DRUG ALLERGIES. MEDICATIONS 1. Lisinopril 2.5 mg daily 2. Metformin 1000 mg b.i.d. 3. Lipitor 10 mg daily 4. Lantus 100 units b.i.d. 5. Novolin N 20 units with breakfast, 30 units with lunch, 40 units with dinner. FAMILY HISTORY The patient is adopted but recently found his father who states that there is a history of coronary artery disease but does not appear to be premature in nature. SOCIAL HISTORY Denies tobacco, alcohol or drug abuse. REVIEW OF SYSTEMS 14-systems were reviewed including osteopathic pertinent positives and negatives above otherwise negative. PHYSICAL EXAMINATION VITAL SIGNS: Temperature 98.5, heart rate 68, blood pressure 118/56, respirations 19, pulse ox 97% on room air. IN GENERAL: In general the patient appears well in no acute distress, alert awake and oriented x3. Extraocular muscles intact. Mucous membranes moist. NECK: The neck is supple. No JVD at 45 degrees. No carotid bruits heard bilaterally. Carotid upstroke is brisk in nature. HEART: The heart is regular rate and rhythm. Positive first and second heart sounds with no murmurs, gallops or rubs. PMI is nondisplaced. LUNGS: Clear to auscultation bilaterally. No wheezes, rales or rhonchi. ABDOMEN: Soft, nontender sent no organomegaly noted. EXTREMITIES: Show no clubbing, cyanosis or edema. Femoral and distal pulses intact bilaterally. NEUROLOGICALLY: No focal deficits. SKIN: Warm, dry and intact. Osteopathic, no kyphoscoliosis, lordosis or paraspinal tender points. LABORATORY FINDINGS Hemoglobin 14.0, hematocrit 41.9, platelets 197. Potassium 3.6, BUN 11, creatinine 0.87, troponin negative x3, triglycerides 385, total cholesterol 214, LDL 111, HDL 25.6. Electrocardiogram (March 19, 2017 at 1914) sinus rhythm, marked right axis deviation, probable inferior myocardial infarction age indeterminate. IMPRESSION 1. Earnest Landaverde presented with chest pain which was concerning for coronary insufficiency. He had to be placed on nitroglycerin at a high rate to finally get rid of his chest pain. 2. Although troponins have been negative. He had a recent stress test within the past year which showed no disease but persists to have chest pain. Because of this he is recommended cardiac catheterization. 3. Risks, benefits and alternatives were explained to him and he consents as such. 4. We will check a 2-D echo to look at his overall left ventricular function, cardiac structure and possible vulvopathies. 5. As he has significant hyperlipidemia. I would increase his lipids therapy to at least 40 mg at night. 6. Overall he needs better control of his blood sugars which are currently extensively elevated but hemoglobin A1c is pending. 7. Further recommendations will be made after coronary visualization. 8. Hyperlipidemia. Thank you for allowing me to see Earnest Landaverde, if there are any questions please do not hesitate to call. Jack Gilman DO [place]/ /11:05 AM /1:38 PM
[2017-03-20 14:51] LABS: HEMOGLOBIN A1a 1.4 %; HEMOGLOBIN A1b 4.1 %; HEMOGLOBIN Ao 71.5 %; HEMOGLOBIN LA1C 3.2 %; HEMOGLOBIN P3 5.4 %
--- NOTE | 2017-03-20 15:01 | MA ---
cc: JAKC GILMAN DO DATE March 20, 2017 PROCEDURE Left heart catheterization, coronary angiogram, moderate sedation 40 minutes. PREPROCEDURE DIAGNOSIS Chest pain concerning for coronary insufficiency, abnormal EKG. POSTPROCEDURE DIAGNOSIS Mild coronary artery disease. MEDICATIONS 1. Versed 1 milligram. 2. Fentanyl 50 micrograms. 3. Verapamil 2.5 milligrams. 4. Heparin 5000 units. 5. Nitro 200 micrograms. CONTRAST 50 cc. FLUOROSCOPY 12.7 minutes. MODERATE SEDATION 40 minutes. ESTIMATED BLOOD LOSS 10 cc. PROCEDURAL SUMMARY Earnest Landaverde is a pleasant 31-year-old male who originally presented to [facility] Emergency Room due to significant chest pain. While in the emergency room his chest pain was finally relieved with 80 micrograms per minute of nitroglycerin. He was placed on a heparin drip. In seeing him this morning it was felt that his story as well as his risk factors were concerning and he recently had a stress test within the past year which was negative but still has chest pain. Because of this I felt that he should undergo cardiac catheterization. Risks, benefits and alternatives were explained to him and he consented as such. He was brought to lab and prepped in the usual sterile fashion. Right radial artery was accessed using a modified Seldinger technique and placement of a 5/6 Cook Islander sheath. This was easily aspirated and flushed. A JR-4 was advanced over a J-wire to the ascending aorta and across the aortic valve into the left ventricle for measurement of left ventricular pressures. This was pulled back across the aortic valve showing no significant gradient of aortic stenosis. JR-4 was then used for selective angiography of the right coronary system. This was exchanged out for a JL-3.5 but was unable to engage the left main. JL-3.5 was exchanged for a 4 but this was unable to engage the left main. JL-4 was then exchanged for a JL-4.5 which was used for selective angiography of the left coronary system. JL-4.5 was removed over a J-wire. A radial band was placed over the arteriotomy site for hemostasis. 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 FINDINGS Left main overall short vessel with adequate reflux and no significant disease. It trifurcates into an LAD ramus and left circumflex. LAD is a large normal vessel with mild luminal irregularities through the mid and distal portions. It gives off two diagonals with the second diagonal having 20-30% proximal stenosis and a small vessel. Ramus is an overall large vessel with no significant disease throughout. Left circumflex is a normal-size vessel with mild luminal irregularities. The distal portion does have a 20-30% lesion. It gives off two major obtuse marginals with no significant disease. RCA is a normal-size vessel with 20% disease in the proximal portion but otherwise no significant disease. It is a dominant vessel and supplies the PDA. LVEDP 19. IMPRESSION 1. Chest pain originally concerning for coronary insufficiency with multiple risk factors. 2. Mild coronary artery disease as above. 3. Elevated LVEDP. 4. Uncontrolled diabetes mellitus. 5. Obstructive sleep apnea. RECOMMENDATIONS 1. Earnest Landaverde presented with concerning chest pain and it was felt that he should undergo cardiac catheterization as he had a stress test in the past year which was negative but continued to have concerning chest pain as well as his high-risk job. 2. During this he was found to have mild coronary artery disease. 3. Will check a 2-D echo to look at his overall left ventricular function, cardiac structure and possible vulvopathies as well as other causes of chest pain. 4. If he does have mild coronary artery disease and he has significant risk factors I would place him on aspirin 81 milligrams daily as well as increase his statin therapy to Lipitor 40 milligrams every night. 5. Overall, he needs blood pressure and blood sugar control as he does have significant risk factors at as such a young age. 6. I have asked that he continue to use C-PAP for his obstructive sleep apnea. 7. Will plan on watching him overnight off heparin and nitroglycerin and if stable in the morning can be discharged home. Thank you for allowing me to see Earnest Landaverde. If there are any questions please do not hesitate to call. Jack Gilman DO VGP/EO /12:22 PM /2:37 PM
--- NOTE | 2017-03-20 15:23 | HHI.PR ---
Subjective Remarks f/u on chest pain, patient complains of mild headache, cyst chest pain is much better Objective Vital Signs Date Time Temp Pulse Resp B/P Pulse Ox O2 Delivery O2 Flow Rate FiO2 03/20/17 14:39 78 138/78 03/20/17 14:12 131/71 03/20/17 14:00 63 03/20/17 13:39 72 131/83 03/20/17 13:06 142/76 03/20/17 13:00 77 03/20/17 12:55 63 138/75 03/20/17 12:39 69 134/74 03/20/17 12:30 65 03/20/17 12:27 64 18 142/74 99 03/20/17 11:00 98.6 60 20 129/70 98 03/20/17 11:00 52 03/20/17 10:00 55 03/20/17 09:30 19 03/20/17 09:00 85 03/20/17 08:00 56 03/20/17 07:15 98.5 68 19 118/56 97 03/20/17 07:15 60 03/20/17 07:15 97 Room Air 03/20/17 06:00 69 03/20/17 05:00 60 03/20/17 04:10 98 35 03/20/17 04:00 63 03/20/17 04:00 98.3 66 18 129/68 100 03/20/17 03:30 Bi-Pap 35 03/20/17 03:00 60 03/20/17 01:38 64 03/20/17 01:38 98.3 67 18 136/77 98 03/20/17 01:38 Nasal Cannula 2.00 03/20/17 01:00 72 20 123/73 96 Room Air 03/19/17 23:02 70 18 116/60 98 Room Air 03/19/17 22:09 86 16 149/68 97 Room Air 03/19/17 21:00 94 20 122/55 97 Room Air 03/19/17 20:40 89 18 156/93 98 Room Air 03/19/17 20:26 88 18 143/71 Room Air 03/19/17 20:15 90 18 148/72 95 Room Air 03/19/17 20:10 82 18 130/68 96 Room Air 03/19/17 20:04 78 20 132/68 95 Room Air 03/19/17 20:00 76 22 131/74 94 Room Air 03/19/17 19:55 71 20 135/70 93 Room Air 03/19/17 19:50 81 20 133/71 97 Room Air 03/19/17 19:45 77 22 130/73 97 Room Air 03/19/17 19:27 124/73 03/19/17 19:17 98.8 80 24 133/85 99 I/O 03/19/17 03/19/17 03/19/17 03/20/17 03/20/17 03/20/17 07:00 15:00 23:00 07:00 15:00 23:00 Intake Total 634 ml Output Total 500 ml Balance 134 ml Intake Oral 0 ml IV Total 634 ml Output Urine Total 500 ml # Bowel Movements 1 Result Diagram: 03/20/17 0653 03/20/17 0653 Procedures s/p cath; no acute occlusions noted Objective Remarks GENERAL: No acute distress, resting comfortably EYES: No scleral icterus. No injection or drainage. CARDIOVASCULAR: Regular rate and rhythm without murmurs, gallops, or rubs. RESPIRATORY: Breath sounds equal bilaterally. No accessory muscle use. GASTROINTESTINAL: Abdomen soft, non-tender, nondistended. MUSCULOSKELETAL: No cyanosis, or edema. A/P Problem List: (1) Chest pain ICD Code: R07.9 (2) Hyperglycemia ICD Code: R73.9 (3) Diabetes ICD Code: E11.9 Assessment and Plan 1. Chest pain: Unremarkable cardiac cath, chest pain improved. We'll start PPI 2. Migraine: h/o Migraine w/ Acute Headache last evening, s/p Sumatriptan, possible vasoconstriction triggering chest pain. Hold Sumatriptan. 3. DM: We'll restart basal dosing and lower strength, continue to hold metformin secondary to contrast 4. HTN: Continue with beta krista 5. Sleep Apnea: On CPAP at night,CPAP w/ home settings. 6. DVT Prophylaxis: Heparin gtt Problem Qualifiers (1) Chest pain: Qualified Code: R07.2 - Precordial pain Ricky Fabian MD Mar 20, 2017 15:23
[2017-03-20] MEDS: ASPIRIN 81 MG CHEW TAB CHEW SCH (15:54)
[2017-03-20] MEDS ORDERED: ATORVASTATIN 40 MG TAB PO SCH (21:00)
[2017-03-21] VITALS (13 sets, daily range): BP systolic 128–139; BP diastolic 72–77; PULSE 52–76; RESP 17–20; TEMP 97–98.4; O2SAT 97–99
[2017-03-21] MEDS: ACETAMINOPHEN 325 MG TAB PO PRN (00:06)
[2017-03-21] MEDS: INSULIN ASPART SUPPLEMENTAL SCALE SQ SCH (06:30)
--- NOTE | 2017-03-21 08:04 | HHI.DCPOC ---
Discharge Care Plan Your Health Problems Are: Chest Pain Fluctuating Blood Sugars Additional Problems Uncontrolled diabetes Goals to Promote Your Health * To prevent worsening of your condition and complications * To maintain your health at the optimal level He need to maintain strict control of your blood sugars to improve your overall cardiovascular health, ultimately in the future once her blood sugars between 100 - 130 at all times of the day. This will take time to fix it can be done outpatient under the care of your primary care provider. Talk to primary care provider about taking entire Lantus dose for the day and one shot as opposed to 2 different shots. Also speak with her regular doctor or your senior procurement specialist in the office to see if any further medication therapy is warranted with slightly dilated left ventricle noted on echocardiogram. Directions to Meet Your Goals Take your medications as prescribed Follow your dietary instruction Follow activity as directed Keep your appointments as scheduled Take your immunizations and boosters as scheduled If your symptoms worsen call your PCP, if no PCP go to Urgent Care Center or Emergency Room Smoking is Dangerous to Your Health. Avoid second hand smoke Call the 24-hour hour crisis hotline for domestic abuse at Ricky Fabian MD Mar 21, 2017 08:04
--- NOTE | 2017-03-21 08:55 | ECHRPT ---
Indication: CHEST PAIN CONCLUSIONS Mildly dilated left ventricle. Wall thickness is normal. The left ventricular systolic function is low-normal with an estimated ejection fraction in the rang e of 50- 55% No regional wall motion abnormalities are present. BP: 138 / 78 HR: 78 Rhythm: MEASUREMENTS (Male / Female) Normal Values Technical Quality: 2D ECHO LV Diastolic Diameter PLAX 5.9 cm 4.2 - 5.9 / 3.9 - 5.3 cm LV Systolic Diameter PLAX 4.3 cm IVS Diastolic Thickness 1.0 cm 0.6 - 1.0 / 0.6 - 0.9 cm LVPW Diastolic Thickness 1.0 cm 0.6 - 1.0 / 0.6 - 0.9 cm LV Relative Wall Thickness 0.3 LVOT Diameter 2.4 cm Aortic Root Diameter 3.3 cm LA Systolic Diameter LX 3.0 cm 3.0 - 4.0 / 2.7 - 3.8 cm M-MODE AV Cusp Separation MM 2.0 cm DOPPLER AV Peak Velocity 132.0 cm/s AV Peak Gradient 7.0 mmHg AV Mean Gradient 5.0 mmHg AV Velocity Time Integral 24.2 cm LVOT Peak Velocity 92.5 cm/s LVOT Peak Gradient 3.4 mmHg LVOT Velocity Time Integral 17.9 cm LVOT Cardiac Index 2507.9 cm/minm AV Area Cont Eq vti 3.3 cm AV Area Cont Eq pk 3.2 cm Mitral E Point Velocity 67.1 cm/s Mitral A Point Velocity 46.4 cm/s Mitral E to A Ratio 1.4 LV E' Lateral Velocity 11.9 cm/s Mitral E to LV E' Lateral Ratio 5.6 LV E' Septal Velocity 8.6 cm/s Mitral E to LV E' Septal Ratio 7.8 TR Peak Velocity 239.0 cm/s TR Peak Gradient 22.8 mmHg PV Peak Velocity 57.1 cm/s PV Peak Gradient 1.3 mmHg FINDINGS LEFT VENTRICLE Mildly dilated left ventricle. Wall thickness is normal. The left ventricular systolic function is low normal with an estimated ejection fraction in the rang e of 50- 55%. No regional wall motion abnormalities are present. Left ventricular diastolic function parameters are normal. RIGHT VENTRICLE Normal right ventricular size and systolic function. LEFT ATRIUM The left atrial size is normal. RIGHT ATRIUM The right atrial size is normal. ATRIAL SEPTUM Normal atrial septal thickness without atrial level shunting by limited color doppler interrogation. AORTA The aortic root and proximal ascending aorta are normal in size on limited imaging. MITRAL VALVE Structurally normal mitral valve. No mitral valve stenosis or regurgitation. AORTIC VALVE Normal appearing valve. No aortic valve stenosis or regurgitation. TRICUSPID VALVE Structurally normal tricuspid valve. There is trace tricuspid valve regurgitation. Normal estimated pulmonary pressures. PULMONARY VALVE The pulmonary valve is not well visualized. VESSELS The inferior vena cava is normal in size. PERICARDIUM No pericardial effusion. Rafael Craven MD (Electronically Signed) Final Date:21 March 2017 08:54
[2017-03-21] MEDS: DOCUSATE SODIUM 50 MG/SENNA 8.6 MG TAB PO SCH (09:11)
[2017-03-21] MEDS: SODIUM CHLORIDE 0.9% FLUSH 10 ML FLUSH IV FLUSH SCH (09:12)
[2017-03-21] MEDS: ASPIRIN 81 MG CHEW TAB CHEW SCH (09:12)
[2017-03-21 09:13] LABS: AUTOMATED NEUTROPHIL # 3.3 TH/MM3 (1.8-7.7); BASOPHIL % 0.7 % (0.0-2.0); EOSINOPHIL # 0.2 TH/MM3 (0-0.4); EOSINOPHIL % 2.7 % (0.0-4.0); HEMATOCRIT 41.4 % (39.0-51.0); HEMO FLAGS DIFF FINAL; LYMPHOCYTE # 2.1 TH/MM3 (1.0-4.8); MEAN CELL VOLUME 78.1 FL (80.0-100.0); MEAN CORPUSCULAR HEMOGLOBIN 25.8 PG (27.0-34.0); MONO % 9.3 % (0.0-8.0); NEUT % 53.3 % (16.0-70.0); PLATELET COUNT 188 TH/MM3 (150-450); RED CELL DISTRIBUTION WIDTH 13.3 % (11.6-17.2); WHITE BLOOD COUNT 6.3 TH/MM3 (4.0-11.0)
[2017-03-21] MEDS: INSULIN DETEMIR 100 UNITS/ML VIAL SQ SCH (09:13)
[2017-03-21 09:39] LABS: BICARBONATE 26.8 MEQ/L (21.0-32.0); POTASSIUM 3.4 MEQ/L (3.5-5.1)
[2017-03-21] MEDS: METOPROLOL TARTRATE 25 MG TAB PO SCH (09:50)
[2017-03-21] MEDS ORDERED: ASPI81CH25 CHEW (10:01)
[2017-03-21] MEDS ORDERED: ATOR40TA16 PO (10:01)
--- NOTE | 2017-03-21 10:05 | HHI.DS ---
Discharge Summary Admission Date Mar 19, 2017 at 20:40 Discharge Date: Mar 21, 2017 Admitting Diagnosis NSTEMI (1) Migraine ICD Code: G43.909 Diagnosis: Secondary (2) HTN (hypertension) ICD Code: I10 Diagnosis: Secondary (3) Sleep apnea ICD Code: G47.30 Diagnosis: Secondary (4) DM (diabetes mellitus) ICD Code: E11.9 Diagnosis: Secondary (5) Chest pain ICD Code: R07.9 Diagnosis: Principal Procedures Cardiac cath showing no significant acute occlusions. Brief History - From Admission This is a 31-year-old male with a PMH of HTN, Migraine, Sleep Apnea and DM who presents the ear with complaints of chest pain starting approximately 30min prior to arrival. Reports pain started acutely w/ radiation to RUQ and back. Per , pt had c/o Migraine and took Sumatriptan 50mg x1 last evening. Today , w/ complaints of acute substernal chest pain. No fever, chills, cough or SOB. Reports h/o similar symptoms approx 1yr ago, seen at [facility] and underwent Stress Test which was reportedly negative. On arrival, BP 156/93, HR 89, O2 sat 98% on RA, Afebrile. CBC essentially unremarkable. GFR 79. BS 414. Troponin negative. INR normal. CXR with no acute findings. EKG with T- wave inversions, no previous EKG for comparison. While in ER, pt w/ ongoing complaints of pain, s/p Heparin/Nitro gtt. Dr. Amor consulted by ER physician, will see in am for possible cath. CBC/BMP: 03/21/17 0736 03/21/17 0736 Significant Findings Laboratory Tests Test 03/19/17 03/20/17 03/20/17 03/21/17 19:20 00:58 06:53 07:36 Mean Corpuscular Volume 78.6 FL 78.9 FL 78.1 FL (80.0-100.0) (80.0-100.0) (80.0-100.0) Mean Corpuscular Hemoglobin 26.0 PG 26.4 PG 25.8 PG (27.0-34.0) (27.0-34.0) (27.0-34.0) Monocytes % 9 % (0-8) Sodium Level 131 MEQ/L (136-145) Chloride Level 97 MEQ/L (98-107) Carbon Dioxide Level 20.5 MEQ/L (21.0-32.0) Estimat Glomerular Filtration 79 ML/MIN (>89) Rate Random Glucose 414 MG/DL 258 MG/DL 226 MG/DL (74-106) (74-106) (74-106) Aspartate Amino Transf 49 U/L (15-37) 52 U/L (15-37) (AST/SGOT) Alanine Aminotransferase 86 U/L (12-78) 88 U/L (12-78) (ALT/SGPT) Troponin I LESS THAN 0.02 LESS THAN 0.02 LESS THAN 0.02 NG/ML NG/ML NG/ML (0.02-0.05) (0.02-0.05) (0.02-0.05) Total Protein 8.5 GM/DL (6.4-8.2) Hemoglobin A1c 13.8 % (4.3-6.0) Triglycerides Level 385 MG/DL (42-150) Cholesterol Level 214 MG/DL (120-200) LDL Cholesterol 111 MG/DL (0-99) HDL Cholesterol 25.6 MG/DL (40.0-60.0) Monocytes (%) (Auto) 9.3 % (0.0-8.0) Potassium Level 3.4 MEQ/L (3.5-5.1) PE at Discharge GENERAL: Comfortably resting EYES: No scleral icterus. No injection or drainage. CARDIOVASCULAR: Regular rate and rhythm without murmurs, gallops, or rubs. RESPIRATORY: Breath sounds equal and clear bilaterally. No accessory muscle use. GASTROINTESTINAL: Abdomen soft, non-tender, nondistended. MUSCULOSKELETAL: No cyanosis, or edema. Hospital Course Patient was admitted on telemetry. Cardiology was consulted, performed a left heart catheterization showing no significant acute coronary occlusions. Patient 's chest pain had resolved within 24 hours. Echocardiogram performed showed intact EF of at least 50%, did have a mildly dilated left ventricle. Patient was told to follow-up with his regular doctor and cardiology for this particular finding but otherwise was clinically stable for discharge. Patient has met maximum benefit from hospitalization. Pt Condition on Discharge: Good Discharge Disposition: Discharge Home Discharge Time: > 30 minutes Ricky Fabian MD Mar 21, 2017 10:05
[2017-03-21] MEDS ORDERED: PROT40TA PO (10:08)
--- NOTE | 2017-03-21 10:51 | PD.CARD.PN ---
Subjective Subjective Remarks No chest pain, no shortness of breath Objective Medications Current Medications Medications (Trade) Dose Ordered Sig/Mian Route Start Time Stop Time Status Last Admin (D50w (Vial) Inj) 50 ml UNSCH PRN IV 03/19/17 21:00 (Glucagon Inj) 1 mg UNSCH PRN OTHER 03/19/17 21:00 Metoprolol Tartrate 12.5 mg 12.5 mg Q12HR PO 03/19/17 21:00 03/21/17 09:50 (NS 1000 ml Inj) 1,000 ml @ 100 mls/hr Q10H IV 03/19/17 20:50 03/20/17 09:02 (NS Flush) 2 ml UNSCH PRN IV FLUSH 03/19/17 21:00 (NS Flush) 2 ml BID IV FLUSH 03/19/17 21:00 03/21/17 09:12 (Zofran Inj) 4 mg Q6H PRN IVP 03/19/17 21:00 (Tylenol) 650 mg Q6H PRN PO 03/19/17 21:00 03/21/17 00:06 ([place] 5-325 Mg) 1 tab Q4H PRN PO 03/19/17 21:00 (Morphine Inj) 2 mg Q3H PRN IV 03/19/17 21:00 (Latasha-Colace) 1 tab BID PO 03/19/17 21:00 03/21/17 09:11 (Milk Of Magnesia Liq) 30 ml Q12H PRN PO 03/19/17 21:00 (Senokot) 17.2 mg Q12H PRN PO 03/19/17 21:00 (Dulcolax Supp) 10 mg DAILY PRN RECTAL 03/19/17 21:00 (Lactulose Liq) 30 ml DAILY PRN PO 03/19/17 21:00 (Pill Splitter) 1 ea UNSCH PRN OTHER 03/19/17 21:30 (Levemir Inj) 75 units BID SQ 03/20/17 09:00 03/21/17 09:13 (Lipitor) 40 mg HS PO 03/20/17 21:00 03/20/17 21:20 (Aspirin Chew) 81 mg DAILY CHEW 03/20/17 12:30 03/21/17 09:12 Vital Signs / I&O Vital Signs Date Time Temp Pulse Resp B/P Pulse Ox O2 Delivery O2 Flow Rate FiO2 03/21/17 10:00 76 03/21/17 09:00 52 03/21/17 08:00 66 03/21/17 07:45 97.9 64 17 130/76 99 03/21/17 07:00 99 Room Air 03/21/17 07:00 59 03/21/17 05:00 64 03/21/17 04:00 63 03/21/17 04:00 98.4 65 18 128/72 97 03/21/17 03:00 58 03/21/17 02:00 68 03/21/17 01:00 66 03/21/17 00:35 99 35 03/21/17 00:00 67 03/21/17 00:00 97.0 61 20 139/77 99 03/20/17 23:00 68 03/20/17 22:00 82 03/20/17 21:00 86 03/20/17 20:00 64 03/20/17 20:00 Room Air 03/20/17 20:00 97.5 76 20 159/82 99 03/20/17 19:00 70 03/20/17 18:19 151/86 03/20/17 18:08 79 03/20/17 17:10 149/82 03/20/17 17:00 68 03/20/17 16:10 75 163/96 03/20/17 16:05 76 03/20/17 15:06 79 139/81 03/20/17 15:00 76 03/20/17 15:00 98.6 77 18 139/81 99 03/20/17 14:39 78 138/78 03/20/17 14:12 131/71 03/20/17 14:00 63 03/20/17 13:39 72 131/83 03/20/17 13:06 142/76 03/20/17 13:00 77 03/20/17 12:55 63 138/75 03/20/17 12:39 69 134/74 03/20/17 12:30 65 03/20/17 12:27 64 18 142/74 99 03/20/17 11:00 98.6 60 20 129/70 98 03/20/17 11:00 52 I/O 8/5/17 03/20/17 03/20/17 03/21/17 03/21/17 03/21/17 06:59 14:59 22:59 06:59 14:59 22:59 Intake Total 634 ml 620 ml Output Total 500 ml 650 ml 250 ml Balance 134 ml -650 ml 370 ml Intake Oral 0 ml 620 ml IV Total 634 ml 0 ml Output Urine Total 500 ml 650 ml 250 ml # Bowel Movements 1 Physical Exam GENERAL: NAD, AAOx3 SKIN: Warm and dry. HEAD: Atraumatic. Normocephalic. EYES: Pupils equal and round. No scleral icterus. No injection or drainage. ENT: No nasal bleeding or discharge. Mucous membranes pink and moist. NECK: Trachea midline. No JVD. CARDIOVASCULAR: Regular rate and rhythm. RESPIRATORY: No accessory muscle use. Clear to auscultation. Breath sounds equal bilaterally. GASTROINTESTINAL: Abdomen soft, non-tender, nondistended. Hepatic and splenic margins not palpable. MUSCULOSKELETAL: Extremities without clubbing, cyanosis, or edema. No obvious deformities. Right radial no hematoma/bruit, neurovascularly intact distally NEUROLOGICAL: Awake and alert. No obvious cranial nerve deficits. Motor grossly within normal limits. Five out of 5 muscle strength in the arms and legs. Normal speech. PSYCHIATRIC: Appropriate mood and affect; insight and judgment normal. Laboratory Laboratory Tests Test 03/21/17 07:36 White Blood Count 6.3 TH/MM3 Red Blood Count 5.30 MIL/MM3 Hemoglobin 13.7 GM/DL Hematocrit 41.4 % Mean Corpuscular Volume 78.1 FL Mean Corpuscular Hemoglobin 25.8 PG Mean Corpuscular Hemoglobin 33.0 % Concent Red Cell Distribution Width 13.3 % Platelet Count 188 TH/MM3 Mean Platelet Volume 8.4 FL Neutrophils (%) (Auto) 53.3 % Lymphocytes (%) (Auto) 34.0 % Monocytes (%) (Auto) 9.3 % Eosinophils (%) (Auto) 2.7 % Basophils (%) (Auto) 0.7 % Neutrophils # (Auto) 3.3 TH/MM3 Lymphocytes # (Auto) 2.1 TH/MM3 Monocytes # (Auto) 0.6 TH/MM3 Eosinophils # (Auto) 0.2 TH/MM3 Basophils # (Auto) 0.0 TH/MM3 CBC Comment DIFF FINAL Differential Comment Sodium Level 137 MEQ/L Potassium Level 3.4 MEQ/L Chloride Level 101 MEQ/L Carbon Dioxide Level 26.8 MEQ/L Anion Gap 9 MEQ/L Blood Urea Nitrogen 12 MG/DL Creatinine 0.82 MG/DL Estimat Glomerular Filtration 109 ML/MIN Rate Random Glucose 226 MG/DL Calcium Level 8.6 MG/DL Assessment and Plan Problem List: (1) Chest pain (2) Hyperglycemia (3) Diabetes (4) Sleep apnea (5) HTN (hypertension) Assessment and Plan 1) No significant CAD on catheterization 2) EF 50-55%, no significant valvulopathies 3) Uncontrolled DM, A1c >13 4) Blood pressure better controlled 5) DILIP, will attempt to get Bipap calibrated 6) Cardiovascularly stable for discharge 7) HLD, increased Lipitor to 40mg daily Problem Qualifiers (1) Chest pain: Qualified Code: R07.2 - Precordial pain Jack Amor DO Mar 21, 2017 10:51
== END 2017-03-21 11:46 | disposition home or self-care (01) ==
LOC: NEPE 19:07 → INTOOBSV 20:40 → NEDA 20:40 → HCIN 03-20 01:05
PROVIDERS: ADMIT Hospitalist; ATTEND Hospitalist
DX: I24.9 Acute ischemic heart disease, unspecified (principal); R42 Dizziness and giddiness; R61 Generalized hyperhidrosis; I11.9 Hypertensive heart disease without heart failure; I51.7 Cardiomegaly; G43.909 Migraine, unspecified, not intractable, without status migrainosus; E11.9 Type 2 diabetes mellitus without complications; G47.33 Obstructive sleep apnea (adult) (pediatric); Z91.19 Patient's noncompliance with other medical treatment and regimen; R10.11 Right upper quadrant pain; M54.9 Dorsalgia, unspecified; I25.10 Atherosclerotic heart disease of native coronary artery without angina pectoris; E78.5 Hyperlipidemia, unspecified; E11.65 Type 2 diabetes mellitus with hyperglycemia; E78.00 Pure hypercholesterolemia, unspecified; R94.31 Abnormal electrocardiogram [ECG] [EKG]; E66.9 Obesity, unspecified; Z79.899 Other long term (current) drug therapy; Z79.4 Long term (current) use of insulin; Z79.84 Long term (current) use of oral hypoglycemic drugs
CPT/HCPCS: 71010; 80048; 80053; 80061; 82550; 82552; 82948; 83036; 83690; 83735; 84443; 84484; 85007; 85025; 85027; 85610; 85730; 93005; 93306; 93454; 94002; 94003; 96365; 96375; 99291; C1769; C1893; G0378; J1644; J1815; J2250; J3010; J7030; Q9967

== ENCOUNTER 2017-11-09 11:30 | Emergency (ER) | payer OTHER ==
[~2017-11-09] VITALS: Ht 182.9 cm; Wt 124.5 kg
[~2017-11-09 11:30] MED LIST: ASPI81CH25 CHEW; ATOR40TA16 PO; INSUINJ3 SQ; LANTUS2P SQ; LISI2.5T3 PO; METF1000 PO; NOVORP2 SQ; PROT40TA PO
[2017-11-09 11:44] VITALS: BP 127/71; PULSE 67; RESP 16; TEMP 98.3; O2SAT 96
[2017-11-09] MEDS ORDERED: METF500T PO (11:58)
[2017-11-09] MEDS ORDERED: PANT40TA3 PO (11:58)
[2017-11-09] MEDS ORDERED: LANTUS2P SQ (11:58)
[2017-11-09] MEDS ORDERED: LISI2.5T3 PO (11:58)
[2017-11-09] MEDS ORDERED: NOVOLOGP2 SQ (11:58)
[2017-11-09] MEDS ORDERED: IBUPROFEN 800 MG TAB PO ONE (12:15)
[2017-11-09] MEDS ORDERED: METHOCARBAMOL 500 MG TAB PO ONE (12:15)
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
[2017-11-09] MEDS ORDERED: ROBA500T PO (12:59)
[2017-11-09] MEDS ORDERED: DICL75TA PO (12:59)
== END 2017-11-09 13:20 | disposition home or self-care (01) ==
LOC: PHEFT 11:30
DX: S39.012A Strain of muscle, fascia and tendon of lower back, initial encounter (principal); V49.49XA Driver injured in collision with other motor vehicles in traffic accident, initial encounter; Y99.0 Civilian activity done for income or pay
CPT/HCPCS: 72110; 99283